=== PATIENT | male | born 1975 | race Caucasian/White ===

== ENCOUNTER 2016-08-16 23:58 | Emergency (ER) | payer OTHER ==
[~2016-08-16] VITALS: Ht 185.4 cm; Wt 79.8 kg
[2016-08-17 00:22] VITALS: BP 122/85
== END 2016-08-17 01:25 | disposition home or self-care (01) ==
LOC: ED 23:58
DX: S92.512A Displaced fracture of proximal phalanx of left lesser toe(s), initial encounter for closed fracture (principal); Z79.899 Other long term (current) drug therapy; W50.0XXA Accidental hit or strike by another person, initial encounter; Y93.89 Activity, other specified; Y92.89 Other specified places as the place of occurrence of the external cause; Y99.8 Other external cause status
CPT/HCPCS: Q0092

== ENCOUNTER → 2016-09-20 | Outpatient (CLI) | payer OTHER | END | disposition home or self-care (01) | LOC: MI 10:50 | PROC: BQ3MZZZ Magnetic Resonance Imaging (MRI) of Left Foot (ICD-10-PCS; principal; 2016-09-20) | PROC: BQ3HZZZ Magnetic Resonance Imaging (MRI) of Left Ankle (ICD-10-PCS; 2016-09-20) | DX: S93.525A Sprain of metatarsophalangeal joint of left lesser toe(s), initial encounter (principal); X58.XXXA Exposure to other specified factors, initial encounter; Y92.9 Unspecified place or not applicable ==